=== PATIENT | male | born 1960 | race African-American/Black ===

== ENCOUNTER 2017-01-28 01:25 | Inpatient (IN) | payer OTHER ==
[2017-01-23 08:49] VITALS: BP 187/97
[2017-01-23 09:42] LABS: CALCIUM 8.2 mg/dL (8.4-10.5); CARBON DIOXIDE 26.8 mmol/L (20.0-32)
[2017-01-23 13:52] LABS: BASOPHIL % 0.4 % (0.0-0.2); EOSINOPHIL % 5.4 % (0.0-5.0); HEMATOCRIT 36.7 % (37.0-53.0); HEMOGLOBIN 11.6 g/dL (13.9-16.3); LYMPHOCYTES # 1.2 10^3/uL (1.0-4.8); LYMPHOCYTES % 26.7 % (24.0-44.0); MEAN CELL HGB 30.4 pg (26-34); MEAN CELL HGB CONCENTRATION 31.6 g/dL (33-37); MEAN CORP VOLUME 96.1 fL (78-100); MEAN PLATELET VOLUME 11.4 fL (7.8-11.0); MONOCYTES % 9.8 % (5.0-12.0); NEUTROPHIL # 2.7 10^3/uL (1.8-7.7); NEUTROPHILS % 57.5 % (41.0-85.0); RED CELL DISTRIBUTION WIDTH 17.1 % (11.5-14.5); WHITE BLOOD CELL 4.6 10^3/uL (4.5-11.0)
[2017-01-23 13:53] LABS: EOSINOPHIL # 0.3 10^3/uL (0.0-0.2); MONOCYTES # 0.5 10^3/uL (0.3-0.8)
[~2017-01-28] VITALS: Ht 162.6 cm; Wt 74.0 kg
[~2017-01-28 01:25] MED LIST: ACET-685 PO; ALBU0.63 NEB; AMLO5TAB2 PO; CALC500T27 PO; CHOL100011 PO; CINA30TA PO; INSU100V SQ; ONDA4TAB7 PO; PANT40TA3 PO; PHEN100C PO; QUET50TA PO; SERT50TA PO; TRAM50TA PO
[2017-01-28] MEDS ORDERED: BENADRYL PO ONE ×3 (06:00→12:30)
[2017-01-28] MEDS ORDERED: SUBLIMAZE ONE ×3 (09:09→14:54)
[2017-01-28] MEDS ORDERED: VERSED ONE (09:09)
[2017-01-28 11:50] VITALS: BP 187/92
[2017-01-28] MEDS ORDERED: CALAN ONE (13:29)
[2017-01-28] MEDS ORDERED: NS 1000ML 1,000 ML ONE (13:29)
[2017-01-28] MEDS ORDERED: HEPARIN ONE (13:30)
[2017-01-28] MEDS ORDERED: XYLOCAINE ONE (13:30)
[2017-01-28] MEDS ORDERED: APRESOLINE ONE (14:15)
[2017-01-28] MEDS ORDERED: ZOFRAN ONE (14:55)
[2017-01-28] MEDS: NS 1000ML 1,000 ML IV SCH (15:06)
[2017-01-28] MEDS ORDERED: NORCO 5 MG PO PRN (15:30)
--- NOTE | 2017-01-28 16:00 | NUR ---
RECEIVED PATIENT TO ROOM VIA [employer] RECEIVED REPORT FROM DARIA FORMAN. PATIENT AWAKE AND ALERT. SPEAKS LOUD AND REFUSES TO COOPERATE AT TIMES. PATIENT TURNING ONTO RIGHT SIDE DESPITE BEING TOLD HE HAS TO LIE FLAT AFTER PROCEDURE. SPECIAL VITAL SIGNS IN PROGRESS. PATIENT BILATERAL AMPUTEE. PATIENT BP ELEVATED. PATEINT DENIES BALLESTEROS OR PAIN. SR UP X2. CALL LIGHT WITHIN REACH.
--- NOTE | 2017-01-28 16:29 | NUR ---
SS CONSULT/TRANSPORTATION: SW SPOKE TO JEANETH AT [facility] REGARDING TRANSPORTATION FOR DIALYSIS IN [place] AND TRANSPORTATION BACK TO THE HALF-WAY. JEANETH STATES PT'S DIALYSIS APPOINTMENT IS AT 1315. JEANETH STATES THEY NEED TO PICK PT UP BY [phone] IN ORDER TO MAKE APPT. INFORMATION PROVIDED TO DASIA FUNEZ.
--- NOTE | 2017-01-28 16:45 | NUR ---
PATIENT DEMANDED IV FLUIDS BE DISCONTINUED. STATES "IT WILL MAKE ME HAVE EXTRA KILOS WHEN I GO TO DIALYSIS. I CANT BE TAKING IN EXTRA FLUID." THIS NURSE EXPLAINED TO PATIENT HE NEEDED THE FLUID TO FLUSH HIS SYSTEM FOLLOWING THE PROCEDURE. PT STATED "IM ABOUT TO RIP IT OUT MY ARM."
--- NOTE | 2017-01-28 17:07 | NUR ---
DR GOOD NOTIFIED OF PATIENT ELEVATED BP AND REFUSING IV FLUIDS.
--- NOTE | 2017-01-28 17:36 | NUR ---
PATIENT SITTING UP EATING DINNER. FLAT TIME UP. BP ELEVATED. NO ORDERS RECEIVED FROM DR GOOD.
[2017-01-28] MEDS ORDERED: NOVOLIN R SUBCUT SCH (18:00)
--- NOTE | 2017-01-28 18:00 | NUR ---
SMALL AMOUNT BLEEDING NOTED TO ANGIOSEAL SITE LEFT GROIN. SOFT AND PALPABLE. INSTRUCTED PATIENT RE: IMPORTANCE OF LYING IN BED. SR UP X2. PATIENT LYING AT PRESENT.
[2017-01-28] MEDS: TUMS PO SCH (18:05)
--- NOTE | 2017-01-28 19:23 | NUR ---
BLEEDING NOTED TO HEART CATH SITE PLACED 4X4 AND PRESSURE DRESSING TO SITE POPITEAL PULSE PALPABLE PT IS NATALIE BKA. PT TOOK TELEMETRY OFF AND REFUSES TO WEAR. REFUSES IV FLUIDS.
[2017-01-28 19:31] VITALS: BP 180/91
--- NOTE | 2017-01-28 19:44 | CCLR ---
DATE OF PROCEDURE: 01/28/2017 PROCEDURES PERFORMED: 1. Abdominal aortogram. 2. Bilateral selective lower extremity arteriography. 3. Atherectomy and balloon angioplasty of the right posterior tibial artery. 4. Atherectomy and balloon angioplasty of the right TP trunk. 5. Atherectomy and balloon angioplasty of the right popliteal artery. 6. Atherectomy of the right SFA. COMPLICATIONS: None. BLOOD LOSS: Around 20-30 mL. INDICATIONS: 1. Nonhealing stump for the last 2-1/2 months on the left below knee amputation site. 2. Severe peripheral arterial disease causing bilateral BKA. 3. Multiple risk factors for PAD including diabetes mellitus, end stage renal disease on hemodialysis, hypertension and history of smoking. HISTORY OF PRESENT ILLNESS: The patient is a 56-year-old -[place] patient with history of end stage renal disease on hemodialysis, hypertension, diabetes, dyslipidemia and smoking. This gentleman has undergone bilateral below knee amputations for severe PAD. He has developed some ulceration and failure to heal some of the wounds on the left stump area, referred for vascular evaluation and treatment. Given the obvious peripheral arterial disease by history and by current symptoms and findings, the patient was elected for lower extremity arteriogram and possible angioplasty of the left. DESCRIPTION OF PROCEDURE: The patient signed proper consent, presented to the Medical Records Coordinator in a fasting condition. Arrangements for dialysis were made. His creatinine was elevated. Nevertheless, he is on dialysis. Visipaque was the agent of choice for contrast selection and minimal contrast was attempted to be utilized. The patient has full understanding of the sequences and the management plan. The left groin area was prepped and draped and sterilized. 1% lidocaine was used for local analgesia. A micropuncture technique was utilized to gain initial access into the left femoral artery followed by advancing a 6-Indian sheath in the left common femoral artery for starting the angiography. Over the 6-Indian sheath in the left common femoral artery, an Omniflush catheter was utilized into the descending aorta for abdominal aortogram. The same catheter was advanced to cross over from the left to the right using Aquatrack wire. The Omniflush catheter was then utilized to perform selective angiography of the right lower extremity. The patient underwent right-sided angioplasty of the right posterior tibial, TP trunk, popliteal artery and SFA. After successfully crossing over from the left to the right and performing the right lower extremity arteriogram selectively, a 6-Indian destination sheath was advanced over the guidewire and utilized to selectively engage the right lower extremity. The Aquatrack wire was utilized to cross the critical lesion in the popliteal artery on to the remaining segment of the posterior tibial artery which is a heavily calcified, severely diseased vessel. At that point, a Trailblazer catheter was utilized to exchange for a Viper wire. This was then followed by advancing a 1.25 crown Diamondback orbital atherectomy device utilized to perform atherectomy of the remaining segments of the heavily calcified right posterior tibial artery and right popliteal artery and right TP trunk and right distal SFA. This was then followed by advancing Shinobi wire instead of the Viper wire over the Trailblazer catheter, which was utilized to exchange over the wires. A 3.0 x 150 compliant peripheral balloon was utilized to perform angioplasty of the right TP trunk, right posterior tibial artery and this then was followed by advancing 4.0 x 80 Admiral type drug-coated balloon to perform the angioplasty of the severe disease in the popliteal artery. The same balloon was also utilized to perform distal SFA angioplasty. Excellent results were achieved, improvement in the flow and the muscular flush of the stump was noted in a significant way, no complications were seen. The case was concluded with attempt to proceed with a Perclose closure device that failed to deploy the suture; therefore, manual pressure was applied without complication. The patient tolerated the procedure well. Heparin was given during the procedure at 7000 units at the time of angioplasty. Clinical results were achieved. Successful angiographic success was noted. The patient tolerated the procedure well, had no complications. ANGIOGRAPHIC FINDINGS: 1. Distal abdominal aorta was free of disease, mildly calcified, bifurcates to large free of disease iliac arteries. 2. Selective right lower extremity arteriogram showed the following: Right common iliac artery was minimally diseased 20%. Right external iliac artery was free of disease. Right internal iliac artery was free of disease. Right common femoral artery was free of disease. Right profunda femoris was mildly diseased. Right SFA was mildly diseased proximally 30%, moderately diseased in the mid segment with heavy calcification, moderate disease in the distal segment with heavy calcification. Popliteal artery showed 90% diffuse disease with calcification. The TP trunk showed a 60% diffuse disease with calcification. The posterior tibial artery proximal segment, which supplies a significant amount of blood to the residual stump was severely calcified with diffuse disease around 70-80%. The anterior tibial artery was totally occluded. The peroneal artery was small, severely calcified and severely diseased vessel. 3. Left lower extremity arteriogram showed the following: Left iliac artery was free of disease. Left external iliac artery was free of disease. Left internal iliac artery was free of disease. Left common femoral artery was free of disease. Left superficial femoral artery was showing mild disease proximally 20-30%, moderate disease in the mid segment around 50-55%, popliteal artery was showing mild diffuse disease around 30%, severe calcification and severe disease in the 3 infrapopliteal vessels, anterior tibial, posterior tibial and peroneal arteries. TP trunk was also severely diseased on the left side. ANGIOPLASTY: A 1.25 Diamondback atherectomy device was utilized to perform atherectomy of the right posterior tibial artery, right TP trunk, right popliteal artery and the distal segment of the right SFA. A 3.0 x 150 compliant balloon was utilized to perform balloon angioplasty of the right posterior tibial artery, right TP trunk, right distal popliteal artery: The popliteal artery and the distal SFA were treated using 4.0 x 80 Admiral type drug-coated balloon initially deployed in the popliteal artery and then into the distal SFA with excellent results. IMPRESSION: 1. Successful angioplasty of a severe distal SFA, and TP trunk disease using atherectomy and balloon angioplasty in the setting of severe peripheral arterial disease and nonhealing wound at the right [id number] amputation stump. 2. Severe residual disease in the infrapopliteal segment on the left. 3. Normal abdominal aortogram. 4. Normal iliofemoral segment. 5. The procedure was well tolerated. RECOMMENDATIONS: 1. Hydration. 2. Arrange for dialysis in 24 hours. 3. Sliding scale for diabetes management. 4. Groin care and management. 5. Consider revascularization of the left infrapopliteal segment. 6. Wound care nurse consultation and further evaluation. Dameon Orozco MD DR: FIOR/cholo JOB# [id number]
--- NOTE | 2017-01-28 20:12 | NUR ---
DR. GOOD TOLD THAT PT WAS REFUSING TELEMETRY, VITAL SIGNS AND IV FLUIDS. AND AWEART OF BLEEDING AT SITE AND PRESSURE DRESSING APPLIED. DR. GOOD STATED THAT WAS OK.
[2017-01-28 20:45] VITALS: BP 119/116
--- NOTE | 2017-01-28 20:45 | NUR ---
DR. GOOD NOTIFIED PT HAS HIGH BLOOD PRESSURE 190/116. ORDER RECEIVED TO GIVE NORVASC 10 MG.
[2017-01-28] MEDS ORDERED: NORVASC ONE (20:48)
[2017-01-28] MEDS ORDERED: SEROQUEL ONE (20:51)
[2017-01-28] MEDS ORDERED: ZOFRAN ODT ONE (20:51)
[2017-01-28] MEDS ORDERED: HUMALOG SQ SCH (21:00)
[2017-01-28] MEDS: NOVOLIN R SUBCUT SCH ×2 (21:00→21:13)
[2017-01-28] MEDS ORDERED: SEROQUEL PO SCH (21:00)
[2017-01-28] MEDS ORDERED: NORVASC PO ONE ×2 (21:00)
[2017-01-28] MEDS: DILANTIN PO SCH (21:01)
[2017-01-28] MEDS: ZOFRAN ODT PO SCH (21:02)
[2017-01-28] MEDS: TYLENOL WITH CODEINE #3 TABLET PO SCH (21:03)
[2017-01-28] MEDS: ULTRAM PO SCH (21:10)
[2017-01-29 00:06] VITALS: BP 175/99
[2017-01-29] MEDS: NS 1000ML 1,000 ML IV SCH ×2 (01:06→08:14)
--- NOTE | 2017-01-29 03:02 | NUR ---
PT WOKE UP AND CALLED NURSES STATION. WENT TO ROOM TO GET VITAL SIGNS AND CHECK HEART CATH SITE PT ALLOWED ME TO CHECK HEART CATH SITE , REFUSED VITAL SIGNS.
[2017-01-29] MEDS: TUMS PO SCH ×2 (06:00)
[2017-01-29] MEDS: ZOFRAN ODT PO SCH (06:00)
[2017-01-29] MEDS: NOVOLIN R SUBCUT SCH (07:30)
[2017-01-29 08:00] VITALS: BP 179/100
[2017-01-29] MEDS: ULTRAM PO SCH (08:09)
[2017-01-29] MEDS: TYLENOL WITH CODEINE #3 TABLET PO SCH (08:10)
[2017-01-29] MEDS: DILANTIN PO SCH (08:10)
--- NOTE | 2017-01-29 08:18 | PRM.DC ---
Discharge Summary Date of Arrival on Unit: Jan 28, 2017 Reason for Visit: severe PAD, nonhealing stump ulcer on the left Additional Comments 56-year-old diabetic gentleman with end-stage renal disease on hemodialysis in addition to other vascular problems including CAD and carotid. This gentleman was subject to bilateral below-knee amputation the past for severe PAD, presented with 2 months of nonhealing ulceration at the left BKA stump site. The patient was on hemodialysis therefore it was felt to be safe to proceed with arteriography and angioplasty. Left lower extremity arteriogram and angioplasty was performed yesterday showing severe disease in the popliteal segment, moderate to severe disease in the SFA, severely calcified and severely occluded TP trunk and posterior tibial arteries. Those vessels was subject to atherectomy and angioplasty with balloons and drug-coated balloons. The patient reports improvement of symptoms immediately, there was in the and improvement on the granulation tissueafter 24 hours. Wound care nurse confirmed that improvement patient's needed to be discharged today to follow-up with scheduled hemodialysis in another facility in [place]. The patient reports no other symptoms. Groin access site was free of complication. Patient History: Unknown 32 MOTHER, , Age:72 33 FATHER, G8 BROTHER G8 BROTHER G8 BROTHER G8 BROTHER G8 SISTER G8 SISTER History Present Illness: General: Alert, Oriented X3 HEENT: Atraumatic, PERRLA Neck: Supple, No JVD Lungs: Clear to auscultation Heart: Regular rate, Normal S1, Normal S2, Other ( S4 noted) Extremities: Other ( bilateral below-knee amputation,left stump ulceration showed significant improvement with granulation tissue formation) Scheduled Acetaminophen With Codeine (Tylenol With Codeine #3 Tablet) 1 EACH PO TID ( Reported) Albuterol Sulfate (Albuterol Sulfate) 1 VIAL NEB TID (Reported) Amlodipine Besylate (Amlodipine Besylate) 1 TAB PO DAILY (Reported) Calcium Carbonate (Calcium) 500 MG PO Q6HR (Reported) Cholecalciferol (Vitamin D3) (Vitamin D) 1 CAP PO DAILY (Reported) Cinacalcet Hcl (Sensipar) 1 TAB PO DAILY (Reported) Insulin Lispro (Humalog) 100 UNIT SQ UNKNOWN (Reported) Ondansetron Hcl (Zofran) 1 TAB PO Q8HR (Reported) Pantoprazole Sodium (Protonix) 1 TAB PO DAILY (Reported) Phenytoin Sodium Extended (Dilantin) 1 CAP PO TID (Reported) Quetiapine Fumarate (Quetiapine Fumarate) 50 MG PO DAILY (Reported) Sertraline Hcl (Zoloft) 1 TAB PO DAILY (Reported) Tramadol Hcl (Tramadol Hcl) 1 TAB PO TID (Reported) Course Blood Pressure Systolic: 175 Blood Pressure Diastolic: 99 Blood Pressure Mean: 124 Plan Assessment - severe PAD, bilateral - nonhealing ulcer at the stump of the left BKA - successful angioplasty of the left SFA, popliteal artery, TP trunk and posterior tibial artery - diabetes mellitus with complications - end-stage renal disease on hemodialysis - hypertension hyperlipidemia - COPD with smoking, Discharge Disposition: Stable Plan - patient is to be discharged to follow-up with scheduled hemodialysis - start Pletal 50 mg by mouth twice a day - continue home medications - wound care evaluation and management at the care home - optimize risk factors - optimize diabetes control - outpatient follow-up in one to 2 weeks DAE GOOD MD Jan 29, 2017 08:18
--- NOTE | 2017-01-29 08:22 | NUR ---
DISCHARGE PLANNING: PT IS A [facility]IDENT AT [facility] [place]. PT HAS ALL DME IN PLACE, AND GOAL IS TO DISCHARGE SO PT [facility]. NO FURTHER NEEDS NOTED OR IDENTIFIED AT THIS TIME. PT SAFETY HANDOUT ADDRESSED, NO QUESTIONS ASKED, UNDERSTANDING VERBALIZED. SS TO CONTINUE TO FOLLOW AND MONITOR DISCHARGE PLANNING NEEDS.
--- NOTE | 2017-01-29 08:27 | NUR ---
DISCHARGE DISCHARGE INSTRUCTIONS GIVEN ALONG WITH FOLLOW IN 1 WEEK AND PRESCRIPTIONS,IV D/C AND INTACT, DRESSING CHANGED TO LEFT FEMORAL, SOFT WITH NO SWELLING, PT VERBALIZED UNDERSTANDING AND DENIES FURTHER NEEDS AT THIS TIME.
[2017-01-29 08:29] VITALS: BP 179/100
[2017-01-29] MEDS ORDERED: PROTONIX PO SCH (09:00)
[2017-01-29] MEDS ORDERED: NORVASC PO SCH (09:00)
[2017-01-29] MEDS ORDERED: SEROQUEL PO SCH (09:00)
[2017-01-29] MEDS ORDERED: VITAMIN D PO SCH (09:00)
[2017-01-29] MEDS ORDERED: ZOLOFT PO SCH (09:00)
== END 2017-01-29 10:54 | DRG 181 ==
LOC: SDC 01:25 → MS 15:06
PROVIDERS: ADMIT Internal Medicine; ATTEND Internal Medicine
PROC: B41D1ZZ Fluoroscopy of Aorta and Bilateral Lower Extremity Arteries using Low Osmolar Contrast (ICD-10-PCS; principal; 2017-01-28)
PROC: 047M3Z1 Dilation of Right Popliteal Artery using Drug-Coated Balloon, Percutaneous Approach (ICD-10-PCS; 2017-01-28)
PROC: 04CM3ZZ Extirpation of Matter from Right Popliteal Artery, Percutaneous Approach (ICD-10-PCS; 2017-01-28)
PROC: 04CR3ZZ Extirpation of Matter from Right Posterior Tibial Artery, Percutaneous Approach (ICD-10-PCS; 2017-01-28)
PROC: 04CT3ZZ Extirpation of Matter from Right Peroneal Artery, Percutaneous Approach (ICD-10-PCS; 2017-01-28)
PROC: 04CK3ZZ Extirpation of Matter from Right Femoral Artery, Percutaneous Approach (ICD-10-PCS; 2017-01-28)
PROC: 047R3ZZ Dilation of Right Posterior Tibial Artery, Percutaneous Approach (ICD-10-PCS; 2017-01-28)
PROC: 047T3ZZ Dilation of Right Peroneal Artery, Percutaneous Approach (ICD-10-PCS; 2017-01-28)
PROC: 047K3Z1 Dilation of Right Femoral Artery using Drug-Coated Balloon, Percutaneous Approach (ICD-10-PCS; 2017-01-28)
DX: E11.51 Type 2 diabetes mellitus with diabetic peripheral angiopathy without gangrene (principal); N18.6 End stage renal disease; I12.0 Hypertensive chronic kidney disease with stage 5 chronic kidney disease or end stage renal disease; E11.22 Type 2 diabetes mellitus with diabetic chronic kidney disease; T87.89 Other complications of amputation stump; E11.622 Type 2 diabetes mellitus with other skin ulcer; L98.499 Non-pressure chronic ulcer of skin of other sites with unspecified severity; E78.5 Hyperlipidemia, unspecified; J44.9 Chronic obstructive pulmonary disease, unspecified; G40.909 Epilepsy, unspecified, not intractable, without status epilepticus; I25.10 Atherosclerotic heart disease of native coronary artery without angina pectoris; Y83.5 Amputation of limb(s) as the cause of abnormal reaction of the patient, or of later complication, without mention of misadventure at the time of the procedure; F17.200 Nicotine dependence, unspecified, uncomplicated; Z99.2 Dependence on renal dialysis; Z89.512 Acquired absence of left leg below knee; Z89.511 Acquired absence of right leg below knee; Z79.899 Other long term (current) drug therapy
CPT/HCPCS: 36415; 37225; 37229; 37233; 75625; 75716; 80048; 82948; 85025; 85610; 93005; A5200; C1724; C1725; C1760; C1769; C1887; C1894; J0360; J1644; J2250; J2405; J3010; J3490; J7030; Q0162; Q0163; Q9967; Q9966

== ENCOUNTER → 2017-02-20 | Outpatient (CLI) | payer OTHER ==
[~2017-02-20] VITALS: Ht 185.4 cm; Wt 72.6 kg
[~2017-02-20] MED LIST changes: +LEXISCAN IV STA
--- NOTE | 2017-02-22 06:52 | STRESS ---
DATE OF SERVICE: 02/20/2017 INDICATIONS: A 57-year-old gentleman with a new onset chest pain. He is diabetic with hypertension and smoking, elected for stress test to rule out any ischemic component to the patient's symptoms, especially with the presence of a high risk profile: The patient presented to the Stress Test in a fasting condition, signed a proper consent. Risks and benefits were explained. Baseline blood pressure was 171/90, heart rate of 67. EKG showed sinus rhythm with nonspecific ST-T wave changes. The patient was injected 0.4 mg of regadenoson followed by the stress dose of technetium sestamibi. One minute post-infusion blood pressure was 146/82, heart rate of 90. The patient remained asymptomatic, no chest pain or shortness of breath. EKG showed no ST changes of ischemia and no arrhythmia. Recovery phase was uneventful. Myocardial perfusion imaging study was performed using 11.4 mCi of technetium sestamibi resting dose and 34.5 mCi of stress dose. FINDINGS: 1. Study quality is poor. 2. LV cavity showed significant TID. 3. SPECT perfusion images showed anterior wall reversible defect, medium in size. 4. Questionable large inferior wall defect could not rule out attenuation artifact due to the absence of prone position. 5. Gated function study showed LV dysfunction, severe EF was 30% with global hypokinesia and dilated LV cavity with end diastolic volume of 148 mL. IMPRESSION: 1. Nondiagnostic stress portion of the stress. 2. No EKG changes of ischemia or arrhythmia. 3. Hemodynamic response remained normal. 4. Myocardial perfusion imaging study was of suboptimal quality, but was very abnormal showing evidence of transient ischemic dilatation, severe LV dysfunction with EF 30%. 5. Perfusion scan was of poor quality. Nevertheless, there was multiple perfusion defects with scattered uptake. 6. This study qualifies for high risk for obstructive coronary artery disease. Clinical correlation is highly recommended, especially with LV dysfunction and TID with the patient who has a high risk profile. Dameon Orozco MD DR: FIOR/cholo JOB# [id number]
== END | disposition home or self-care (01) ==
LOC: RAD 11:50
PROVIDERS: ATTEND Internal Medicine
DX: I25.119 Atherosclerotic heart disease of native coronary artery with unspecified angina pectoris (principal)
CPT/HCPCS: 78452; 93017; 93307; A9500; J2785

== ENCOUNTER 2017-03-11 01:39 | Observation (INO) | payer OTHER ==
[2017-03-07 09:47] VITALS: BP 161/88
[2017-03-07 10:27] LABS: BASOPHIL # 0.1 10^3/uL (0.0-0.1); BASOPHIL % 1.2 % (0.0-0.2); EOSINOPHIL # 0.2 10^3/uL (0.0-0.2); EOSINOPHIL % 3.7 % (0.0-5.0); HEMATOCRIT 31.9 % (37.0-53.0); HEMOGLOBIN 10.6 g/dL (13.9-16.3); LYMPHOCYTES # 1.1 10^3/uL (1.0-4.8); LYMPHOCYTES % 25.7 % (24.0-44.0); MEAN CELL HGB 30.5 pg (26-34); MEAN CELL HGB CONCENTRATION 33.2 g/dL (33-37); MEAN CORP VOLUME 91.7 fL (78-100); MEAN PLATELET VOLUME 11.1 fL (7.8-11.0); MONOCYTES # 0.4 10^3/uL (0.3-0.8); MONOCYTES % 8.9 % (5.0-12.0); NEUTROPHIL # 2.6 10^3/uL (1.8-7.7); NEUTROPHILS % 60.5 % (41.0-85.0); RED CELL DISTRIBUTION WIDTH 15.8 % (11.5-14.5); WHITE BLOOD CELL 4.3 10^3/uL (4.5-11.0)
[2017-03-07 10:29] LABS: CALCIUM 7.9 mg/dL (8.4-10.5); CARBON DIOXIDE 26.4 mmol/L (20.0-32)
[~2017-03-11] VITALS: Ht 185.4 cm; Wt 71.2 kg
[~2017-03-11 01:39] MED LIST changes: -LEXISCAN IV STA
[2017-03-11] MEDS ORDERED: SUBLIMAZE ONE ×2 (06:07→08:38)
[2017-03-11] MEDS ORDERED: HEPARIN ONE (06:07)
[2017-03-11] MEDS ORDERED: NS 1000ML 1,000 ML ONE (06:07)
[2017-03-11] MEDS ORDERED: CALAN ONE (06:07)
[2017-03-11] MEDS ORDERED: VERSED ONE (06:08)
[2017-03-11] MEDS ORDERED: XYLOCAINE ONE (06:08)
[2017-03-11] MEDS ORDERED: NITROGLYCERIN 25MG/D5W 250ML 250 ML IV ONE (06:08)
[2017-03-11] MEDS ORDERED: BENADRYL PO ONE (07:00)
[2017-03-11 07:03] VITALS: BP 171/100
[2017-03-11] MEDS ORDERED: AMLO10TA2 PO (07:18)
[2017-03-11] MEDS ORDERED: CLON1PAT7 TD (07:23)
[2017-03-11] MEDS ORDERED: DOCU100T3 PO (07:24)
[2017-03-11] MEDS ORDERED: CILO100T PO (07:24)
[2017-03-11] MEDS ORDERED: METO25TA4 PO (07:25)
[2017-03-11] MEDS ORDERED: ADENOSINE IV ONE ×2 (08:42→08:43)
[2017-03-11] MEDS ORDERED: ANGIOMAX IV ONE (08:45)
[2017-03-11] MEDS ORDERED: CATAPRES-TTS 1 TD SCH (09:00)
[2017-03-11] MEDS ORDERED: ALBUTEROL SULFATE IH SCH (09:00)
[2017-03-11] MEDS ORDERED: COLACE PO PRN (09:00)
[2017-03-11] MEDS: NS 1000ML 1,000 ML IV SCH (09:00)
[2017-03-11] MEDS ORDERED: NORCO 5 MG PO PRN (09:00)
--- NOTE | 2017-03-11 09:30 | NUR ---
Refusal Patient refused Special vitals, telemetry, and education on Radial site. Educated patient on risks of refusal of treatment, patient verbalized understanding, Reinforcement needed. Educated patient on TR band, patient verbalized understanding, . Reinforcement needed. Educated patient on reportable S/S related to heart cath, patient stated "I ain't going to bleed the Good lord is watching over me." Will continue to monitor. Call light within reach.
[2017-03-11] MEDS: ULTRAM PO SCH ×3 (10:15→22:05)
[2017-03-11] MEDS: PROTONIX PO SCH (10:15)
[2017-03-11] MEDS: LOPRESSER PO SCH ×2 (10:15→22:04)
[2017-03-11] MEDS: DILANTIN PO SCH ×3 (10:16→22:04)
[2017-03-11] MEDS: NORVASC PO SCH (10:16)
[2017-03-11] MEDS: TYLENOL WITH CODEINE #3 TABLET PO SCH ×3 (10:16→22:04)
--- NOTE | 2017-03-11 10:16 | CCRH ---
DATE OF SERVICE: 03/11/2017 PROCEDURES PERFORMED: 1. Left heart catheterization via right radial artery access. 2. Selective coronary angiography, left and right. 3. Left ventricular end-diastolic pressure measurement. 4. Left ventriculography. 5. Fractional flow reserve study of the mid RCA. 6. Bivalirudin infusion. COMPLICATIONS: None. BLOOD LOSS: Minimal, less than 10 mL. INDICATIONS: 1. Abnormal stress test on 02/22/2017 with multiple high risk findings including LV dysfunction, multiple perfusion defects, scattered nuclear contrast uptake. 2. Progressive symptoms of angina equivalent manifested with shortness of breath. 3. Multiple severe risk factors for coronary artery disease including end stage renal disease, severe PAD, requiring bilateral amputation of the lower extremities, diabetes mellitus, hypertension, hyperlipidemia and smoking history. HISTORY OF PRESENT ILLNESS: The patient is a 57-year-old gentleman, on hemodialysis, who had an abnormal stress test on 02/22/2017 due to symptoms of progressive shortness of breath and the presence of the above-mentioned high risk factors for coronary artery disease. Stress test was abnormal with significant high risk features including LV dysfunction, TID and multiple perfusion defects. Therefore, he was elected for coronary angiography. DESCRIPTION OF PROCEDURE: Arrangements were made to arrange for the cardiac cath the day before the next hemodialysis session. Therefore, the patient was brought into the [facility] in a fasting condition as an outpatient, signed a proper consent, risks and benefits were explained. All the questions were answered. Lab results were reviewed and allergies verified. Right wrist area was prepped and draped and sterilized and 1% lidocaine was used for local analgesia followed by advancing 6-Danish sheath in the right radial artery. A 6-[place] catheter was utilized to engage left and right coronary arteries for selective coronary angiography. This was followed by advancing a pigtail catheter into the LV cavity across the aortic valve for LVEDP measurement and power injection LV gram in the OSBRONE projection using 20 mL of contrast. After careful examination of coronary angiography, it was noticed an indeterminate lesion in the mid RCA which is a large, dominant vessel. The rest of the left coronary angiography showed minimal left main disease, otherwise normal. Therefore, I have decided to proceed with FFR study of the RCA given the abnormal stress test findings. Therefore, JR4 was the guide of choice utilized to engage the left main. Bivalirudin was the anticoagulation of choice. An RailComm pressure wire was zeroed, equalized and advanced across the catheter into the RCA to the distal segment. The resting gradient was 91%, dropped to 87% with adenosine infusion intravenously according to standard protocol of 4 minutes of infusion. The case was concluded with removal of wires and catheters and application of TR band in the right radial artery access site as the lesion was determined to be hemodynamically and physiologically insignificant. HEMODYNAMICS: 1. Opening pressure 161/75, mean 103 mmHg. 2. LVEDP was around 10 mmHg. 3. LV gram showed an EF around 55%. There is some anterior wall hypokinesia. 4. Calcified aortic valve with a gradient of around 5 mmHg. 5. Ascending aorta was normal in size without apparent acute pathology. ANGIOGRAPHIC FINDINGS: 1. The right coronary artery is a large, dominant vessel. The proximal part was free of disease. The mid segment showed a 40% lesion, eccentric with calcification. The lesion length was around 10 mm. The distal RCA is free of disease, dominant in distribution with moderate tortuosity. Multiple small acute marginal branches were noted without obstructive disease. 2. The left main is a normal size vessel, mild proximal disease around 30%. The vessel is otherwise free of disease, bifurcates to left anterior descending artery and left circumflex artery. 3. The left anterior descending artery is normal size vessel, free of disease. It wraps around the apex without obstructive lesion. The first diagonal branch is a large size vessel, free of disease. The second and third diagonals are small vessels, free of disease. Multiple small septal branches were noted arising from the septal wall of the LAD without obstructive disease. 4. The circumflex artery is a nondominant vessel, medium in size, terminates as small, nondominant vessel, given rise to 3 small obtuse marginal branches which are tortuous and free of disease. INTERVENTION: FFR study was performed to the mid RCA using a JR4 guiding catheter and Aeris pressure wire after being zeroed, equalized and advanced into the RCA without difficulty. Bivalirudin was the anticoagulation of choice. Adenosine was given according to standard protocol with 145 mcg per kg per minute for 4 minutes standard protocol. Resting gradient was 91%, dropped to 87%. Therefore, the lesion was physiologically insignificant. IMPRESSION: 1. Moderate mid RCA disease. 2. Dominant RCA, free of other disease. 3. Minimal disease in the proximal left main around 30%. 4. Normal LAD. 5. Medium size, nondominant circumflex artery, free of disease. 6. EF 55%. 7. Normal LVEDP. 8. The procedure was well tolerated. RECOMMENDATIONS: 1. TR band protocol. 2. The patient will be admitted to the observation service for hydration and management for dialysis. 3. Continue home medication. 4. Sliding scale for diabetes mellitus. 5. Gentle IV fluid to avoid volume overload. 6. Continue secondary prevention of coronary artery disease. 7. Outpatient followup. Dameon Orozco MD DR: FIOR/cholo JOB# [id number]
[2017-03-11] MEDS: ZOLOFT PO SCH (10:17)
[2017-03-11] MEDS: SEROQUEL PO SCH (10:53)
[2017-03-11] MEDS: VITAMIN D PO SCH (10:53)
[2017-03-11] MEDS: PLETAL PO SCH ×2 (10:54→22:05)
[2017-03-11] MEDS: HUMULIN R SQ SCH ×2 (11:58→16:56)
[2017-03-11] MEDS: TUMS PO SCH ×2 (12:00→18:00)
[2017-03-11] MEDS: ZOFRAN ODT PO SCH ×2 (13:09→22:05)
[2017-03-11 13:42] VITALS: BP 187/76
[2017-03-11] MEDS: XOPENEX IH SCH ×2 (15:00→21:00)
--- NOTE | 2017-03-11 15:59 | NUR ---
IV fluids Patient refused to receive anymore IV fluids stating it was making him throw up. Educated patient on the importance of fluid after heart cath related to use of contrast, patient verbalized understanding but refused.
[2017-03-11] MEDS ORDERED: ZOFRAN IV PRN (16:00)
--- NOTE | 2017-03-11 16:06 | NUR ---
Dr. Pam Orozco at bedside
[2017-03-11 17:54] VITALS: BP 163/77
[2017-03-11 19:37] VITALS: BP 194/75
--- NOTE | 2017-03-11 21:00 | NUR ---
pt refuses to take 2100 meds, requests they be given at 2200
--- NOTE | 2017-03-11 22:00 | NUR ---
2100 meds given at 2200, per pt request. pt told about 0000 meds and 0600 meds, pt states that he will not take those meds, and he does not want to be awaken, pt has also told gear roller that she may not wake him for vital signs, report to charge nurse,
[2017-03-11 23:59] VITALS: BP 170/75
[2017-03-12] MEDS: NS 1000ML 1,000 ML IV SCH (03:04)
--- NOTE | 2017-03-12 04:09 | NUR ---
retail key holder attempt to get vs at this time, pt told her to get of room
[2017-03-12] MEDS: TUMS PO SCH ×2 (04:51)
[2017-03-12] MEDS: ZOFRAN ODT PO SCH (04:53)
--- NOTE | 2017-03-12 05:05 | NUR ---
pt refused lab draw at this time
[2017-03-12 06:10] VITALS: BP 193/73
[2017-03-12] MEDS: NORVASC PO SCH (06:14)
[2017-03-12] MEDS: LOPRESSER PO SCH (06:15)
[2017-03-12] MEDS: HUMULIN R SQ SCH (08:00)
[2017-03-12] MEDS: DILANTIN PO SCH (08:24)
[2017-03-12] MEDS: PLETAL PO SCH (08:24)
[2017-03-12] MEDS: ZOLOFT PO SCH (08:24)
[2017-03-12] MEDS: VITAMIN D PO SCH (08:25)
[2017-03-12] MEDS: PROTONIX PO SCH (08:25)
[2017-03-12] MEDS: SEROQUEL PO SCH (08:25)
[2017-03-12] MEDS: TYLENOL WITH CODEINE #3 TABLET PO SCH (08:25)
[2017-03-12] MEDS: ULTRAM PO SCH (08:25)
--- NOTE | 2017-03-12 08:28 | NUR ---
DISCHARGE PLANNING: SS VISITED WITH PT CONCERNING DISCHARGE PLACEMENT. PT IS A RESIDENT AT [facility], AND HAD QUESTIONS REGARDING POSSIBLY MOVING TO ANOTHER FACILITY. SS LET PT DUE TO PT'S INSURANCE AND THE NH BEING IN THE MIDDLE OF THE PROCESS OF SWOPPING HIM TO [place] MEDICAID HE WOULD HAVE TO WAIT UNTIL THEY FINISHED THAT PROCESS SO HE WOULD NOT BE STUCK WITH A BIG BILL FOR HIS CURRENT STAY IN [place]. PT VERBALIZED UNDERSTANDING, NO FURTHER NEEDS NOTED OR IDENTIFIED AT THIS TIME. SS TO CONTINUE TO FOLLOW AND MONITOR DISCHARGE PLANNING NEEDS. PT'S GOAL IS TO RETURN BACK TO [facility] UPON DISCHARGE.
[2017-03-12 08:32] VITALS: BP 194/68
[2017-03-12] MEDS: XOPENEX IH SCH (08:52)
--- NOTE | 2017-03-12 15:04 | PRM.DC ---
Discharge Summary Date of Arrival on Unit: March 07, 2017 Reason for Visit: abnormal stress test Additional Comments 57-year-old gentleman with severe extensive vascular disease including severe PAD with bilateral below-knee amputation, he is heavy smoker, hypertension with hyperlipidemia. diabetic with complications. He was examined with recent stress test which was abnormal with high risk findings therefore he was elected for coronary angiography. Cardiac cath was designed of the day prior to his next cession of hemodialysis. cardiac cath performed via radial access on 03/11/2017 showed mild to moderate disease, RCA was subject to evaluation with FFR study and noted to be normal. Patient had normal ejection fraction. Was admitted to the observation status for IV fluid management, dehydration and arrangements for hemodialysis to be done as an outpatient. cardiac cath was performed using Visipak contrast and minimal contrast exposure protocol. the patient tolerated the procedure well, arterial access sites on the right radial artery was free of complications. Observation. Was uncomplicated. Patient was discharged to the assisted facility to receive hemodialysis as scheduled Patient History: Unknown 32 MOTHER, , Age:72 33 FATHER, G8 BROTHER G8 BROTHER G8 BROTHER G8 BROTHER G8 SISTER G8 SISTER History Present Illness: General: Alert, Oriented X3 HEENT: Atraumatic, PERRLA Neck: Supple, No JVD Lungs: Clear to auscultation, Other ( diffuse rhonchi with smoker's lung) Heart: Regular rate Abdomen: Normal bowel sounds Extremities: No clubbing, Other (bilateral BKA) Scheduled Acetaminophen With Codeine (Tylenol With Codeine #3 Tablet), 1 EACH PO TID, ( Reported) Albuterol Sulfate (Albuterol Sulfate), 1 VIAL NEB TID, (Reported) Amlodipine Besylate (Amlodipine Besylate), 1 TAB PO DAILY, (Reported) Calcium Carbonate (Calcium), 500 MG PO Q6HR, (Reported) Cholecalciferol (Vitamin D3) (Vitamin D), 1 CAP PO DAILY, (Reported) Cilostazol (Cilostazol), 50 MG PO BID, (Reported) Cinacalcet Hcl (Sensipar), 1 TAB PO DAILY, (Reported) Clonidine (Catapres-Tts 1), 1 EACH TD [id number], (Reported) Insulin Lispro (Humalog), 100 UNIT SQ UNKNOWN, (Reported) Metoprolol Tartrate 25MG (Lopresser 25MG), 25 MG PO BID, (Reported) Ondansetron Hcl (Zofran), 1 TAB PO Q8HR, (Reported) Pantoprazole Sodium (Protonix), 1 TAB PO DAILY, (Reported) Phenytoin Sodium Extended (Dilantin), 1 CAP PO TID, (Reported) Quetiapine Fumarate (Quetiapine Fumarate), 50 MG PO DAILY, (Reported) Sertraline Hcl (Zoloft), 1 TAB PO DAILY, (Reported) Tramadol Hcl (Tramadol Hcl), 1 TAB PO TID, (Reported) Scheduled PRN Docusate Sodium (Docusate Sodium), 50 MG PO PRN PRN for CONSTIPATION, (Reported) Discontinued Medications Amlodipine Besylate (Amlodipine Besylate), 1 TAB PO DAILY, (Reported) Discontinued Reason: Discontinue Course Blood Pressure Systolic: 194 Blood Pressure Diastolic: 68 Blood Pressure Mean: 110 Plan Assessment - coronary artery disease, mild to moderate nonobstructive - End stage renal disease on hemodialysis - severe PAD - hypertension - hyperlipidemia -diabetes mellitus - COPD with active smoking Discharge Disposition: Stable Plan - continue home medications - hemodialysis today - encourage smoking cessation - therapeutic lifestyle modifications - optimize risk factors for CAD may be diabetes mellitus, hypertension, hyperlipidemia and smoking - cardiac cath discharge instructions - outpatient follow-up DAE GOOD MD March 12, 2017 15:04
== END 2017-03-12 09:45 ==
LOC: SDC 01:39 → MS 09:00
PROVIDERS: ADMIT Internal Medicine; ATTEND Internal Medicine
DX: I73.9 Peripheral vascular disease, unspecified (principal); I70.203 Unspecified atherosclerosis of native arteries of extremities, bilateral legs; E11.22 Type 2 diabetes mellitus with diabetic chronic kidney disease; I12.9 Hypertensive chronic kidney disease with stage 1 through stage 4 chronic kidney disease, or unspecified chronic kidney disease; N18.4 Chronic kidney disease, stage 4 (severe); I25.119 Atherosclerotic heart disease of native coronary artery with unspecified angina pectoris; I70.201 Unspecified atherosclerosis of native arteries of extremities, right leg; E13.21 Other specified diabetes mellitus with diabetic nephropathy; R93.1 Abnormal findings on diagnostic imaging of heart and coronary circulation; Z72.0 Tobacco use; R94.39 Abnormal result of other cardiovascular function study
CPT/HCPCS: 36415; 80048; 82948 ×5; 85025; 85610; 93005; 93458; 93571; 96374; 99152; 99153 ×2; C1769; C1887 ×2; C1894; G0378 ×25; J0153 ×2; J0583; J1644 ×2; J2250; J2405; J3010 ×2; J3490 ×5; J7030; Q0162 ×2; Q0163; Q9967 ×2; Q9966

== ENCOUNTER → 2018-02-12 | Outpatient (CLI) | payer OTHER ==
[~2018-02-12] MED LIST changes: +AMLO10TA2 PO; -CALC500T27 PO; +CALC500T92 PO; +CILO100T PO; -CINA30TA PO; +CINA30TA2 PO; +CLON1PAT7 TD; +DOCU100T3 PO; +METO25TA4 PO
[2018-02-12 22:33] LABS: BILIRUBIN,URINE NEGATIVE (NEGATIVE); UROBILINOGEN,URINE NORMAL (NEGATIVE)
[2018-02-12 22:44] LABS: APPEARANCE,URINE SLIGHTLY CLOUDY (CLEAR); UA COLOR YELLOW (YELLOW)
== END | disposition home or self-care (01) ==
LOC: NPLAB 16:31
PROVIDERS: ATTEND Internal Medicine
DX: N18.6 End stage renal disease (principal)
CPT/HCPCS: 80307; 81000; 87077; 87086; 87186